=== PATIENT | female | born 1980 | race Caucasian/White ===

== ENCOUNTER 2017-12-07 20:59 | Inpatient (IN) ==
[2017-12-07 21:28] LABS: Bilirubin,Urine Negative (Negative); Blood,Urine Trace (Negative); Clarity,Urine Cloudy (Clear); Color,Urine Yellow (Yellow); Glucose,Urine (UA) 100 mg/dL (Normal); Ketones,Urine Trace mg/dL (Negative); Leukocyte Esterase,Urine Moderate (Negative); Nitrite,Urine Negative (Negative); Protein,Urine Trace mg/dL (Neg-Trace); Specific Gravity,Urine > 1.030 (1.010-1.025); Urobilinogen,Urine Normal (Normal)
[2017-12-07 21:31] LABS: Bacteria,Urine Few per hpf (None-Few); Hyaline Casts,Urine Few per lpf (None-Few); Squamous Epithelial Cell,Urine Many per lpf (None-Few); WBC,Urine 15-30 per hpf (0-3)
[2017-12-07 21:32] LABS: Basophils # 0.1 K/mcL (0.0-0.2); Basophils % 0.4 %; Eosinophils # 0.1 K/mcL (0.0-0.6); Eosinophils % 0.9 %; Hemoglobin 13.5 g/dL (11.5-15.4); Immature Granulocytes % 0.4 % (0-4); Lymphocytes # 3.1 K/mcL (0.6-4.6); Lymphocytes % 25.4 %; Mean Corpuscular HGB Conc 32.9 g/dL (31.6-35.5); Mean Platelet Volume 10.3 fL (9.4-12.4); Monocytes # 0.8 K/mcL (0.0-1.3); Monocytes % 6.4 %; Neutrophils # 8.2 K/mcL (1.6-8.9); Platelet Count 432 K/mcL (140-400); Red Blood Count 4.36 M/mcL (3.82-4.97); Red Cell Distribution Width 13.5 % (11.5-14.5); Segmented Neutrophils % 66.5 %
[2017-12-07 21:34] LABS: Amphetamine Screen,Urine Negative ng/mL (Cutoff=1000); Barbiturate Screen,Urine Negative ng/mL (Cutoff=200); Benzodiazepines Screen,Urine Negative ng/mL (Cutoff=200); Cannabinoid Screen,Urine Negative ng/mL (Cutoff = 50); Cocaine Screen,Urine Positive ng/mL (Cutoff= 300); Opiate Screen,Urine Negative ng/mL (Cutoff=300); Phencyclidine Screen,Urine Negative ng/mL (Cutoff=25)
[2017-12-07 21:40] LABS: Acetaminophen < 1.0 mcg/mL (10-30); Ethanol < 10 mg/dL (0-10); Salicylate < 5.0 mg/dL (15.0-30.0)
[2017-12-07 21:46] LABS: BUN/Creatinine Ratio 17 (6-26); Blood Urea Nitrogen 13 mg/dL (6-20); Calcium 9.5 mg/dL (8.6-10.3); Carbon Dioxide 25 mEq/L (23-29); Chloride 105 mEq/L (98-107); Glucose 104 mg/dL (70-105); Osmolality,Calculated 286 (280-300); Potassium 3.9 mEq/L (3.5-5.1); Sodium 138 mEq/L (136-145); eGFR For African Americans > 60 (> 60); eGFR For Non-African Americans > 60 (> 60)
[2017-12-07 21:52] LABS: RBC,Urine 0-3 per hpf (0-3); Trichomonas,Urine Present (None Seen)
[2017-12-07] MEDS ORDERED: Azithromycin 250 MG TABLET PO ONE (23:24)
[2017-12-07] MEDS ORDERED: cefTRIAXone 250 MG VIAL IM ONE (23:24)
[2017-12-07] MEDS ORDERED: metroNIDAZOLE 500 MG TABLET PO ONE (23:24)
--- NOTE | 2017-12-07 23:29 | Emergency Department Note ---
Disposition Clinical Impression: STD (female), Suicidal ideation Disposition: Admitted As Inpatient Condition: Good General Adult HPI - General Chief complaint: ED Psychiatric Symptoms Stated complaint: SI Time Seen by Provider: 12/07/17 21:15 Source: EMS Limitations: no limitations Nursing Notes Reviewed: Yes Vital Signs Reviewed: Yes - History of Present Illness HPI Narrative: This is a 37-year-old female presents with a history of bipolar depression as well as substance abuse disorder who has been self-medicating with cocaine as well as alcohol. She complains this evening of feeling suicidal but does not have a clear plan. She denies homicidality or other medical complaints at this time. She is sexually active. She does not a history of herpes. She has no vaginal discharge at this time. General: No acute distress HEENT: Pupils equal and reactive to light, extraoccular muscle movement is normal, TMS are clear bilaterally. Heart: RRR, No murmor rub or gallop Lungs: lungs clear, no wheezing, rales or ronchi. ABD: SNT, no focal areas or tenderness, no guarding or rebound tenderness. Extremities: No cyanosis, clubbing or edema Neuro: CN 2-12 in tact, no focal deficit. strength 5/5. Medical decision making Findings consistent with Trichomonas. I would treat for additional STDs. Flagyl as well as ceftriaxone and azithromycin were given. She will only need this 1 dose. She is to follow-up with the health department upon discharge after any psychiatric services for syphilis as well as HIV testing. Pain Scale: 0 - Related Data Previous Rx's Medication Instructions Recorded Divalproex (24 HR) [Depakote ER 1,500 mg PO HS #30 tab.er.24h 12/15/17 (24 HR)] Mirtazapine [Remeron] 7.5 mg PO HS #10 tablet 12/15/17 Quetiapine Fumarate [Seroquel] 50 mg PO HS #10 tablet 12/15/17 Quetiapine Fumarate [Seroquel] 100 mg PO HS #10 tablet 12/15/17 Allergies Allergy/AdvReac Type Severity Reaction Status Date / Time codeine Allergy Rash Verified 11/12/15 20:48 All systems ED: reviewed and negative except as stated. 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 - Social History Smoking Status: Former smoker Smokeless Tobacco Status: No Alcohol use: Reports: none, occasionally Drug use: Reports: none, other Physical Exam - General Limitations: no limitations General appearance: alert, in no apparent distress Course Vital Signs Temperature 98.1 F 12/07/17 21:01 Pulse Rate 81 12/07/17 21:01 Respiratory Rate 20 12/07/17 21:01 Blood Pressure 161/85 12/07/17 21:01 O2 Sat by Pulse Oximetry 97 12/07/17 21:01 Temperature 97.6 F 12/15/17 09:00 Pulse Rate 77 12/15/17 09:00 Respiratory Rate 16 12/15/17 09:00 Blood Pressure 143/84 12/15/17 09:00 O2 Sat by Pulse Oximetry 98 12/08/17 08:18 Oxygen Delivery Oxygen Delivery Room Air Medical Decision Making - Lab Data Result diagrams: 12/13/17 11:19 12/07/17 21:10 Lab Results 12/07/17 12/07/17 12/07/17 Range/Units 21:10 21:10 21:14 WBC 12.4 H (4.3-11.1) K/mcL RBC 4.36 (3.82-4.97) M/mcL Hgb 13.5 (11.5-15.4) g/dL Hct 41.0 (35.3-44.9) % MCV 94.0 (83.0-100.0) fL MCH 31.0 (28.0-33.3) pg MCHC 32.9 (31.6-35.5) g/dL RDW 13.5 (11.5-14.5) % Plt Count 432 H (140-400) K/mcL MPV 10.3 (9.4-12.4) fL Immature Gran % 0.4 (0-4) % Seg Neutrophils % 66.5 % Lymphocytes % 25.4 % Monocytes % 6.4 % Eosinophils % 0.9 % Basophils % 0.4 % Neutrophils # 8.2 (1.6-8.9) K/mcL Lymphocytes # 3.1 (0.6-4.6) K/mcL Monocytes # 0.8 (0.0-1.3) K/mcL Eosinophils # 0.1 (0.0-0.6) K/mcL Basophils # 0.1 (0.0-0.2) K/mcL Sodium 138 (136-145) mEq/L Potassium 3.9 (3.5-5.1) mEq/L Chloride 105 (98-107) mEq/L Carbon Dioxide 25 (23-29) mEq/L BUN 13 (6-20) mg/dL Creatinine 0.76 (0.60-1.20) mg/dL Est GFR ( Amer) > 60 (> 60) Est GFR (Non-Af Amer) > 60 (> 60) BUN/Creatinine Ratio 17 (6-26) Glucose 104 (70-105) mg/dL Calculated Osmolality 286 (280-300) Calcium 9.5 (8.6-10.3) mg/dL Urine Color (Yellow) Urine Clarity (Clear) Urine pH (5.0-8.0) pH Units Ur Specific [place] (1.010-1.025) Urine Protein (Neg-Trace) mg/dL Urine Glucose (UA) (Normal) mg/dL Urine Ketones (Negative) mg/dL Urine Blood (Negative) Urine Nitrite (Negative) Urine Bilirubin (Negative) Urine Urobilinogen (Normal) mg/dL Ur Leukocyte Esterase (Negative) Urine Microscopic RBC (0-3) per hpf Urine Microscopic WBC (0-3) per hpf Ur Squamous Epith Cells (None-Few) per lpf Urine Bacteria (None-Few) per hpf Hyaline Casts (None-Few) per lpf Urine Trichomonas (None Seen) Urine Test (Negative) Salicylates < 5.0 L (15.0-30.0) mg/dL Urine Opiates Screen Negative (Vnnewi=105) ng/mL Acetaminophen < 1.0 L (10-30) mcg/mL Ur Barbiturates Screen Negative (Tcxfce=606) ng/mL Ur Phencyclidine Scrn Negative (Cutoff=25) ng/mL Ur Amphetamines Screen Negative (Juvprv=6411) ng/mL U Benzodiazepines Scrn Negative (Sjbiuw=337) ng/mL Urine Cocaine Screen Positive H (Cutoff= 300) ng/mL U Marijuana (THC) Screen Negative (Cutoff = 50) ng/mL Ethyl Alcohol < 10 (0-10) mg/dL 12/07/17 12/07/17 Range/Units 21:15 21:15 WBC (4.3-11.1) K/mcL RBC (3.82-4.97) M/mcL Hgb (11.5-15.4) g/dL Hct (35.3-44.9) % MCV (83.0-100.0) fL MCH (28.0-33.3) pg MCHC (31.6-35.5) g/dL RDW (11.5-14.5) % Plt Count (140-400) K/mcL MPV (9.4-12.4) fL Immature Gran % (0-4) % Seg Neutrophils % % Lymphocytes % % Monocytes % % Eosinophils % % Basophils % % Neutrophils # (1.6-8.9) K/mcL Lymphocytes # (0.6-4.6) K/mcL Monocytes # (0.0-1.3) K/mcL Eosinophils # (0.0-0.6) K/mcL Basophils # (0.0-0.2) K/mcL Sodium (136-145) mEq/L Potassium (3.5-5.1) mEq/L Chloride (98-107) mEq/L Carbon Dioxide (23-29) mEq/L BUN (6-20) mg/dL Creatinine (0.60-1.20) mg/dL Est GFR ( Amer) (> 60) Est GFR (Non-Af Amer) (> 60) BUN/Creatinine Ratio (6-26) Glucose (70-105) mg/dL Calculated Osmolality (280-300) Calcium (8.6-10.3) mg/dL Urine Color Yellow (Yellow) Urine Clarity Cloudy A (Clear) Urine pH 6.0 (5.0-8.0) pH Units Ur Specific [place] > 1.030 H (1.010-1.025) Urine Protein Trace (Neg-Trace) mg/dL Urine Glucose (UA) 100 H (Normal) mg/dL Urine Ketones Trace H (Negative) mg/dL Urine Blood Trace H (Negative) Urine Nitrite Negative (Negative) Urine Bilirubin Negative (Negative) Urine Urobilinogen Normal (Normal) mg/dL Ur Leukocyte Esterase Moderate H (Negative) Urine Microscopic RBC 0-3 (0-3) per hpf Urine Microscopic WBC 15-30 H (0-3) per hpf Ur Squamous Epith Cells Many H (None-Few) per lpf Urine Bacteria Few (None-Few) per hpf Hyaline Casts Few (None-Few) per lpf Urine Trichomonas Present A (None Seen) Urine Test Negative (Negative) Salicylates (15.0-30.0) mg/dL Urine Opiates Screen (Utftna=850) ng/mL Acetaminophen (10-30) mcg/mL Ur Barbiturates Screen (Gobwne=273) ng/mL Ur Phencyclidine Scrn (Cutoff=25) ng/mL Ur Amphetamines Screen (Nbwwlm=2783) ng/mL U Benzodiazepines Scrn (Gziyby=146) ng/mL Urine Cocaine Screen (Cutoff= 300) ng/mL U Marijuana (THC) Screen (Cutoff = 50) ng/mL Ethyl Alcohol (0-10) mg/dL
--- NOTE | 2017-12-08 00:16 | Emergency Department Note ---
Disposition Clinical Impression: STD (female), Suicidal ideation Disposition: Still a Patient Condition: Good Referrals: NONE,PCP [Primary Care Provider] - Forms: ED Satisfaction Letter Time of Disposition: 06:14 General Adult HPI - General Chief complaint: ED Psychiatric Symptoms Stated complaint: SI Time Seen by Provider: 12/07/17 21:15 Source: EMS Limitations: no limitations - History of Present Illness Pain Scale: 0 - Related Data Previous Rx's Medication Instructions Recorded Amoxicillin/Clavulanate [Augmentin] 875 mg PO BIDWM #20 tablet 11/06/15 Benzonatate [Tessalon] 200 mg PO TID PRN #30 capsule 11/06/15 Ibuprofen [Motrin] 800 mg PO Q6-8H PRN #30 tablet 11/06/15 Ondansetron [Zofran] 8 mg PO TID PRN #9 tablet 11/06/15 HYDROcodone/Acet 5/325 mg [[place] 1 tab PO Q6H PRN #4 tab 12/18/15 5-325 mg] methylPREDNISolone [Medrol] 4 mg PO DAILY 6 Days tablet 12/18/15 Cimetidine 300 mg PO BID PRN #10 tablet 07/09/16 DiphenhydraMINE [Benadryl] 50 mg PO Q6HR PRN #20 capsule 07/09/16 predniSONE [PredniSONE] 40 mg PO DAILY #3 tablet 07/09/16 Albuterol Sulfate [Albuterol 2 puff IH Q6HR PRN #1 hfa.aer.ad 11/21/16 Inhaler] predniSONE [PredniSONE] 40 mg PO DAILY 5 Days tablet 11/21/16 Fluticasone Propionate Nasal 120 spray NS DAILY #1 bottle 05/25/17 [Flonase] cephALEXin [Keflex] 500 mg PO BID #14 capsule 05/25/17 Allergies Allergy/AdvReac Type Severity Reaction Status Date / Time codeine Allergy Rash Verified 11/12/15 20:48 Past Medical History - Past Medical History Medical history: Reports: no medical history Psychiatric history: Reports: anxiety, bipolar, 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 Bedolla. Patient was evaluated by the psychiatric team and they recommended admission at this time. Patient is resting comfortably in the bed requiring no medical intervention at this point. We will continue monitoring in the emergency room to admission process is completed. Patient is otherwise stable. No acute findings in the physical exam her previous laboratory workup. See detailed documentation of the physical exam and previous history in the previous providers note. - Reevaluation(s) Reevaluation #1: Patient will be signed out to the daytime physician Dr. Bety Fatima. Detailed review of the presentation symptoms medical intervention will be discussed. Patient is waiting on placement currently this time. No need for medical intervention overnight except for Tylenol. Disposition will be completed by the daytime team. Time: 06:13 Vital Signs Temperature 98.1 F 12/07/17 21:01 Pulse Rate 81 12/07/17 21:01 Respiratory Rate 20 12/07/17 21:01 Blood Pressure 161/85 12/07/17 21:01 O2 Sat by Pulse Oximetry 97 12/07/17 21:01 Temperature 98.0 F 12/08/17 03:07 Pulse Rate 94 12/08/17 03:07 Respiratory Rate 16 12/08/17 03:07 Blood Pressure 131/82 12/08/17 03:07 O2 Sat by Pulse Oximetry 98 12/08/17 03:07 Oxygen Delivery Oxygen Delivery Room Air Medical Decision Making - MDM Narrative Medical decision making narrative: Suicidal ideation, polysubstance abuse - Medical Records Medical records reviewed: Yes I reviewed the patient's medical records. - Lab Data Result diagrams: 12/07/17 21:10 12/07/17 21:10 Lab Results 12/07/17 12/07/17 12/07/17 Range/Units 21:10 21:10 21:14 WBC 12.4 H (4.3-11.1) K/mcL RBC 4.36 (3.82-4.97) M/mcL Hgb 13.5 (11.5-15.4) g/dL Hct 41.0 (35.3-44.9) % MCV 94.0 (83.0-100.0) fL MCH 31.0 (28.0-33.3) pg MCHC 32.9 (31.6-35.5) g/dL RDW 13.5 (11.5-14.5) % Plt Count 432 H (140-400) K/mcL MPV 10.3 (9.4-12.4) fL Immature Gran % 0.4 (0-4) % Seg Neutrophils % 66.5 % Lymphocytes % 25.4 % Monocytes % 6.4 % Eosinophils % 0.9 % Basophils % 0.4 % Neutrophils # 8.2 (1.6-8.9) K/mcL Lymphocytes # 3.1 (0.6-4.6) K/mcL Monocytes # 0.8 (0.0-1.3) K/mcL Eosinophils # 0.1 (0.0-0.6) K/mcL Basophils # 0.1 (0.0-0.2) K/mcL Sodium 138 (136-145) mEq/L Potassium 3.9 (3.5-5.1) mEq/L Chloride 105 (98-107) mEq/L Carbon Dioxide 25 (23-29) mEq/L BUN 13 (6-20) mg/dL Creatinine 0.76 (0.60-1.20) mg/dL Est GFR ( Amer) > 60 (> 60) Est GFR (Non-Af Amer) > 60 (> 60) BUN/Creatinine Ratio 17 (6-26) Glucose 104 (70-105) mg/dL Calculated Osmolality 286 (280-300) Calcium 9.5 (8.6-10.3) mg/dL Urine Color (Yellow) Urine Clarity (Clear) Urine pH (5.0-8.0) pH Units Ur Specific [place] (1.010-1.025) Urine Protein (Neg-Trace) mg/dL Urine Glucose (UA) (Normal) mg/dL Urine Ketones (Negative) mg/dL Urine Blood (Negative) Urine Nitrite (Negative) Urine Bilirubin (Negative) Urine Urobilinogen (Normal) mg/dL Ur Leukocyte Esterase (Negative) Urine Microscopic RBC (0-3) per hpf Urine Microscopic WBC (0-3) per hpf Ur Squamous Epith Cells (None-Few) per lpf Urine Bacteria (None-Few) per hpf Hyaline Casts (None-Few) per lpf Urine Trichomonas (None Seen) Urine Test (Negative) Salicylates < 5.0 L (15.0-30.0) mg/dL Urine Opiates Screen Negative (Cahcyj=950) ng/mL Acetaminophen < 1.0 L (10-30) mcg/mL Ur Barbiturates Screen Negative (Tgapen=939) ng/mL Ur Phencyclidine Scrn Negative (Cutoff=25) ng/mL Ur Amphetamines Screen Negative (Jaunkn=8450) ng/mL U Benzodiazepines Scrn Negative (Khosve=428) ng/mL Urine Cocaine Screen Positive H (Cutoff= 300) ng/mL U Marijuana (THC) Screen Negative (Cutoff = 50) ng/mL Ethyl Alcohol < 10 (0-10) mg/dL 12/07/17 12/07/17 Range/Units 21:15 21:15 WBC (4.3-11.1) K/mcL RBC (3.82-4.97) M/mcL Hgb (11.5-15.4) g/dL Hct (35.3-44.9) % MCV (83.0-100.0) fL MCH (28.0-33.3) pg MCHC (31.6-35.5) g/dL RDW (11.5-14.5) % Plt Count (140-400) K/mcL MPV (9.4-12.4) fL Immature Gran % (0-4) % Seg Neutrophils % % Lymphocytes % % Monocytes % % Eosinophils % % Basophils % % Neutrophils # (1.6-8.9) K/mcL Lymphocytes # (0.6-4.6) K/mcL Monocytes # (0.0-1.3) K/mcL Eosinophils # (0.0-0.6) K/mcL Basophils # (0.0-0.2) K/mcL Sodium (136-145) mEq/L Potassium (3.5-5.1) mEq/L Chloride (98-107) mEq/L Carbon Dioxide (23-29) mEq/L BUN (6-20) mg/dL Creatinine (0.60-1.20) mg/dL Est GFR ( Amer) (> 60) Est GFR (Non-Af Amer) (> 60) BUN/Creatinine Ratio (6-26) Glucose (70-105) mg/dL Calculated Osmolality (280-300) Calcium (8.6-10.3) mg/dL Urine Color Yellow (Yellow) Urine Clarity Cloudy A (Clear) Urine pH 6.0 (5.0-8.0) pH Units Ur Specific [place] > 1.030 H (1.010-1.025) Urine Protein Trace (Neg-Trace) mg/dL Urine Glucose (UA) 100 H (Normal) mg/dL Urine Ketones Trace H (Negative) mg/dL Urine Blood Trace H (Negative) Urine Nitrite Negative (Negative) Urine Bilirubin Negative (Negative) Urine Urobilinogen Normal (Normal) mg/dL Ur Leukocyte Esterase Moderate H (Negative) Urine Microscopic RBC 0-3 (0-3) per hpf Urine Microscopic WBC 15-30 H (0-3) per hpf Ur Squamous Epith Cells Many H (None-Few) per lpf Urine Bacteria Few (None-Few) per hpf Hyaline Casts Few (None-Few) per lpf Urine Trichomonas Present A (None Seen) Urine Test Negative (Negative) Salicylates (15.0-30.0) mg/dL Urine Opiates Screen (Pvbzxp=085) ng/mL Acetaminophen (10-30) mcg/mL Ur Barbiturates Screen (Zguumf=275) ng/mL Ur Phencyclidine Scrn (Cutoff=25) ng/mL Ur Amphetamines Screen (Zwlvem=8301) ng/mL U Benzodiazepines Scrn (Razvbv=507) ng/mL Urine Cocaine Screen (Cutoff= 300) ng/mL U Marijuana (THC) Screen (Cutoff = 50) ng/mL Ethyl Alcohol (0-10) mg/dL
[2017-12-08] MEDS ORDERED: Lidocaine -MPF 1% 2 ML VIAL ONE (00:31)
--- NOTE | 2017-12-08 12:41 | Emergency Department Note ---
Disposition Clinical Impression: STD (female), Suicidal ideation Disposition: Admitted As Inpatient Condition: Good Referrals: NONE,PCP [Primary Care Provider] - Forms: ED Satisfaction Letter Time of Disposition: 12:41 General Adult HPI - General Chief complaint: ED Psychiatric Symptoms Stated complaint: SI Time Seen by Provider: 12/07/17 21:15 Source: EMS Limitations: no limitations - History of Present Illness Pain Scale: 0 - Related Data Previous Rx's Medication Instructions Recorded Amoxicillin/Clavulanate [Augmentin] 875 mg PO BIDWM #20 tablet 11/06/15 Benzonatate [Tessalon] 200 mg PO TID PRN #30 capsule 11/06/15 Ibuprofen [Motrin] 800 mg PO Q6-8H PRN #30 tablet 11/06/15 Ondansetron [Zofran] 8 mg PO TID PRN #9 tablet 11/06/15 HYDROcodone/Acet 5/325 mg [[place] 1 tab PO Q6H PRN #4 tab 12/18/15 5-325 mg] methylPREDNISolone [Medrol] 4 mg PO DAILY 6 Days tablet 12/18/15 Cimetidine 300 mg PO BID PRN #10 tablet 07/09/16 DiphenhydraMINE [Benadryl] 50 mg PO Q6HR PRN #20 capsule 07/09/16 predniSONE [PredniSONE] 40 mg PO DAILY #3 tablet 07/09/16 Albuterol Sulfate [Albuterol 2 puff IH Q6HR PRN #1 hfa.aer.ad 11/21/16 Inhaler] predniSONE [PredniSONE] 40 mg PO DAILY 5 Days tablet 11/21/16 Fluticasone Propionate Nasal 120 spray NS DAILY #1 bottle 05/25/17 [Flonase] cephALEXin [Keflex] 500 mg PO BID #14 capsule 05/25/17 Allergies Allergy/AdvReac Type Severity Reaction Status Date / Time codeine Allergy Rash Verified 11/12/15 20:48 Past Medical History - Past Medical History Medical history: Reports: no medical history Psychiatric history: Reports: anxiety, 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 Admitted to [facility] Time: 12:41 Vital Signs Temperature 98.1 F 12/07/17 21:01 Pulse Rate 81 12/07/17 21:01 Respiratory Rate 20 12/07/17 21:01 Blood Pressure 161/85 12/07/17 21:01 O2 Sat by Pulse Oximetry 97 12/07/17 21:01 Temperature 98.0 F 12/08/17 03:07 Pulse Rate 98 12/08/17 08:18 Respiratory Rate 16 12/08/17 08:18 Blood Pressure 133/86 12/08/17 08:18 O2 Sat by Pulse Oximetry 98 12/08/17 08:18 Oxygen Delivery Oxygen Delivery Room Air Medical Decision Making - Lab Data Result diagrams: 12/07/17 21:10 12/07/17 21:10 Lab Results 12/07/17 12/07/17 12/07/17 Range/Units 21:10 21:10 21:14 WBC 12.4 H (4.3-11.1) K/mcL RBC 4.36 (3.82-4.97) M/mcL Hgb 13.5 (11.5-15.4) g/dL Hct 41.0 (35.3-44.9) % MCV 94.0 (83.0-100.0) fL MCH 31.0 (28.0-33.3) pg MCHC 32.9 (31.6-35.5) g/dL RDW 13.5 (11.5-14.5) % Plt Count 432 H (140-400) K/mcL MPV 10.3 (9.4-12.4) fL Immature Gran % 0.4 (0-4) % Seg Neutrophils % 66.5 % Lymphocytes % 25.4 % Monocytes % 6.4 % Eosinophils % 0.9 % Basophils % 0.4 % Neutrophils # 8.2 (1.6-8.9) K/mcL Lymphocytes # 3.1 (0.6-4.6) K/mcL Monocytes # 0.8 (0.0-1.3) K/mcL Eosinophils # 0.1 (0.0-0.6) K/mcL Basophils # 0.1 (0.0-0.2) K/mcL Sodium 138 (136-145) mEq/L Potassium 3.9 (3.5-5.1) mEq/L Chloride 105 (98-107) mEq/L Carbon Dioxide 25 (23-29) mEq/L BUN 13 (6-20) mg/dL Creatinine 0.76 (0.60-1.20) mg/dL Est GFR ( Amer) > 60 (> 60) Est GFR (Non-Af Amer) > 60 (> 60) BUN/Creatinine Ratio 17 (6-26) Glucose 104 (70-105) mg/dL Calculated Osmolality 286 (280-300) Calcium 9.5 (8.6-10.3) mg/dL Urine Color (Yellow) Urine Clarity (Clear) Urine pH (5.0-8.0) pH Units Ur Specific [place] (1.010-1.025) Urine Protein (Neg-Trace) mg/dL Urine Glucose (UA) (Normal) mg/dL Urine Ketones (Negative) mg/dL Urine Blood (Negative) Urine Nitrite (Negative) Urine Bilirubin (Negative) Urine Urobilinogen (Normal) mg/dL Ur Leukocyte Esterase (Negative) Urine Microscopic RBC (0-3) per hpf Urine Microscopic WBC (0-3) per hpf Ur Squamous Epith Cells (None-Few) per lpf Urine Bacteria (None-Few) per hpf Hyaline Casts (None-Few) per lpf Urine Trichomonas (None Seen) Urine Test (Negative) Salicylates < 5.0 L (15.0-30.0) mg/dL Urine Opiates Screen Negative (Gajhdp=661) ng/mL Acetaminophen < 1.0 L (10-30) mcg/mL Ur Barbiturates Screen Negative (Dizyha=649) ng/mL Ur Phencyclidine Scrn Negative (Cutoff=25) ng/mL Ur Amphetamines Screen Negative (Rcvehu=2001) ng/mL U Benzodiazepines Scrn Negative (Alscji=308) ng/mL Urine Cocaine Screen Positive H (Cutoff= 300) ng/mL U Marijuana (THC) Screen Negative (Cutoff = 50) ng/mL Ethyl Alcohol < 10 (0-10) mg/dL 12/07/17 12/07/17 Range/Units 21:15 21:15 WBC (4.3-11.1) K/mcL RBC (3.82-4.97) M/mcL Hgb (11.5-15.4) g/dL Hct (35.3-44.9) % MCV (83.0-100.0) fL MCH (28.0-33.3) pg MCHC (31.6-35.5) g/dL RDW (11.5-14.5) % Plt Count (140-400) K/mcL MPV (9.4-12.4) fL Immature Gran % (0-4) % Seg Neutrophils % % Lymphocytes % % Monocytes % % Eosinophils % % Basophils % % Neutrophils # (1.6-8.9) K/mcL Lymphocytes # (0.6-4.6) K/mcL Monocytes # (0.0-1.3) K/mcL Eosinophils # (0.0-0.6) K/mcL Basophils # (0.0-0.2) K/mcL Sodium (136-145) mEq/L Potassium (3.5-5.1) mEq/L Chloride (98-107) mEq/L Carbon Dioxide (23-29) mEq/L BUN (6-20) mg/dL Creatinine (0.60-1.20) mg/dL Est GFR ( Amer) (> 60) Est GFR (Non-Af Amer) (> 60) BUN/Creatinine Ratio (6-26) Glucose (70-105) mg/dL Calculated Osmolality (280-300) Calcium (8.6-10.3) mg/dL Urine Color Yellow (Yellow) Urine Clarity Cloudy A (Clear) Urine pH 6.0 (5.0-8.0) pH Units Ur Specific [place] > 1.030 H (1.010-1.025) Urine Protein Trace (Neg-Trace) mg/dL Urine Glucose (UA) 100 H (Normal) mg/dL Urine Ketones Trace H (Negative) mg/dL Urine Blood Trace H (Negative) Urine Nitrite Negative (Negative) Urine Bilirubin Negative (Negative) Urine Urobilinogen Normal (Normal) mg/dL Ur Leukocyte Esterase Moderate H (Negative) Urine Microscopic RBC 0-3 (0-3) per hpf Urine Microscopic WBC 15-30 H (0-3) per hpf Ur Squamous Epith Cells Many H (None-Few) per lpf Urine Bacteria Few (None-Few) per hpf Hyaline Casts Few (None-Few) per lpf Urine Trichomonas Present A (None Seen) Urine Test Negative (Negative) Salicylates (15.0-30.0) mg/dL Urine Opiates Screen (Ryagbc=911) ng/mL Acetaminophen (10-30) mcg/mL Ur Barbiturates Screen (Gqgtio=545) ng/mL Ur Phencyclidine Scrn (Cutoff=25) ng/mL Ur Amphetamines Screen (Zxmieq=5899) ng/mL U Benzodiazepines Scrn (Doqyls=658) ng/mL Urine Cocaine Screen (Cutoff= 300) ng/mL U Marijuana (THC) Screen (Cutoff = 50) ng/mL Ethyl Alcohol (0-10) mg/dL
[2017-12-08] MEDS ORDERED: Haloperidol Lactate 5 MG/ML VIAL IM PRN (15:04)
[2017-12-08] MEDS ORDERED: traZODone 50 MG TABLET PO PRN (15:04)
[2017-12-08] MEDS ORDERED: MOM Conc 10 ML UD.LIQ PO PRN (15:04)
[2017-12-08] MEDS ORDERED: hydrOXYzine pamoate 25 MG CAPSULE PO PRN (15:04)
[2017-12-08] MEDS ORDERED: *HR* LORazepam 2 MG/ML VIAL IM PRN (15:04)
[2017-12-08] MEDS ORDERED: Acetaminophen 325 MG TABLET PO PRN (15:04)
[2017-12-08] MEDS ORDERED: *HR* LORazepam 1 MG TABLET PO PRN (15:04)
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
[2017-12-09] MEDS: Divalproex (24 HR) 500 MG TABLET PO SCH (21:28)
--- NOTE | 2017-12-10 16:13 | Psychiatry Progress Note ---
Date of Encounter: 12/10/17 Time of Encounter: 16:00 Subjective Interval history: The patient was seen on the celis. She has features of intermittent explosive disorder which we have not seen on the use of Depakote. She has features of bipolar disorder and tends to be gregarious talkative and interactive on the unit. She has not been threatening but has been persistent. She remains on the inpatient unit because of potential for harm to others. Specifically we need to collect additional history regarding the patient's fiance and mother Review of Systems Psychiatric: Reports: depression, memory loss, mood swings Results - Vital Signs Vital Signs: Temp Pulse Resp BP Pulse Ox 98 F 98 16 129/91 98 12/10/17 09:12 12/10/17 09:12 12/10/17 09:12 12/10/17 09:12 12/08/17 08:18 Assessment and Plan (1) Bipolar disorder, current episode mixed, severe, without psychotic features Current visit: Yes Status: Acute Plan: Continue hospitalization, Close observation, Secure weapons Risks, benefits, side effects, alternatives discussed w/pt: Yes Patient agreeable to treatment: Yes (2) Intermittent explosive disorder Current visit: Yes Status: Acute Plan: Monitor sleep, Secure weapons, Family/Supportive other meeting Risks, benefits, side effects, alternatives discussed w/pt: Yes Patient agreeable to treatment: Yes Consult Discharge Plan - Plan Referrals: [facility] [Outside] - 12/16/17 10:30 am (The above appointment is with Chloe Xiao, counselor at [facility]. Your first appointment will be very thorough and the total appointment time will take between two and three hours. You will be completing paperwork, meeting with a counselor and a nurse, and developing a treatment plan. You will receive follow- up appointments for on-going services , which could include community support, mental health and substance abuse counseling, groups/partial hospitalization programming, medication assisted treatment, and psychiatric medication management. Please bring the following with you to your first visit to the clinic: 1) proof of household income (two consecutive pay stubs, social security award letter, bank statement, statement letter from [facility], child support statement, IRS 1040 or W2 form, or a statement from the person who financially supports you stating they help provide for your basic needs), 2) proof of residency (drivers license, a piece of mail showing your address, a statement from person you live with verifying you live at their address), 3) your social security card, 4) photo ID, and 5) your insurance card (if you have commercial insurance you must call to obtain a prior authorization number before you arrive to your first appointment). If you do not bring these items, you will not be seen. ) Annamarie Vargas [Advanced Practice Nurse] - (The above appointment is with Annamarie Vargas CNP, at [facility]. This appointment is to establish you with a primary care provider. Your needs for medication and/or Vivitrol will be assessed and treated as indicated as well. Please arrive 15 minutes early to complete paperwork. Please bring your insurance card, photo ID and list of current medications to your first appointment. The above appointment(s) reflects first availability. You may contact the office regularly to check for cancellations that may allow you to be seen sooner.) Psychiatry Exam - Constitutional Vitals: Temp Pulse Resp BP Pulse Ox 98 F 98 16 129/91 98 12/10/17 09:12 12/10/17 09:12 12/10/17 09:12 12/10/17 09:12 12/08/17 08:18 General appearance: age & developmentally appropriate, well-groomed - Musculoskeletal Gait: brisk Station: relaxed Strength & Tone: normal for patient - Psychiatric Patient Orientation: Yes Person, Yes Time, Yes Place Level of alertness: Alert Behavior: restless, impulsive, talkative Psychomotor activity: Increased Eye Contact: Maintains Eye Contact Mood Description: Elevated, Expansive Affect description: full range Speech Volume: Loud Speech pattern: normal rate Language & Vocabulary: consistent with education Thought Process: Linear, Goal Oriented Thought Content: Yes Homicidal ideation Perceptual Disturbances: No Auditory hallucinations, No Visual hallucinations Attention Span Ability: Capable of Focused Attention Memory Description: Grossly Intact Patient Reliability: Questionable Historian Fund of knowledge: Yes average Intelligence Estimate: Average Judgment: Limited Insight: Minimal
[2017-12-10] MEDS: Divalproex (24 HR) 500 MG TABLET PO SCH (21:03)
--- NOTE | 2017-12-11 15:51 | Psychiatry Progress Note ---
Date of Encounter: 12/11/17 Time of Encounter: 13:00 Subjective Interval history: Patient seen and discussed on rounds by a multidisciplinary treatment team. There were no reported behavioral issues or incident overnight. She was calm, cooperative and well related through out her evaluation. She reported significant improvement in her racing thoughts. mood swings and irritability. Patient however continue to endorse some depressive symptoms and is not to be isolating her self and spending most of her day in her room. She is complaint with her medications and denied any noted side effects. She reported significant improvement in her sleep with her regimen and denied any noted side effects. Patient logical and goal directed. Though she is responding to regimen , she continuous to exhibit limited impulse control and judgment. Patient remains a rsik to self and other at present time and will benefit from ongoing stabilization. Review of Systems Psychiatric: Reports: depression, irritability, mood swings Results - Vital Signs Vital Signs: Temp Pulse Resp BP Pulse Ox 97.6 F 88 16 135/94 98 12/11/17 09:00 12/11/17 09:00 12/11/17 09:00 12/11/17 09:00 12/08/17 08:18 Assessment and Plan (1) Bipolar disorder, current episode mixed, severe, without psychotic features Current visit: Yes Status: Acute Risks, benefits, side effects, alternatives discussed w/pt: Yes Patient agreeable to treatment: Yes Consult Discharge Plan - Plan Referrals: [facility] [Outside] - 12/16/17 10:30 am (The above appointment is with Chloe Xiao, counselor at [facility]. Your first appointment will be very thorough and the total appointment time will take between two and three hours. You will be completing paperwork, meeting with a counselor and a nurse, and developing a treatment plan. You will receive follow- up appointments for on-going services , which could include community support, mental health and substance abuse counseling, groups/partial hospitalization programming, medication assisted treatment, and psychiatric medication management. Please bring the following with you to your first visit to the clinic: 1) proof of household income (two consecutive pay stubs, social security award letter, bank statement, statement letter from [facility], child support statement, IRS 1040 or W2 form, or a statement from the person who financially supports you stating they help provide for your basic needs), 2) proof of residency (drivers license, a piece of mail showing your address, a statement from person you live with verifying you live at their address), 3) your social security card, 4) photo ID, and 5) your insurance card (if you have commercial insurance you must call to obtain a prior authorization number before you arrive to your first appointment). If you do not bring these items, you will not be seen. ) Annamarie Vargas [Advanced Practice Nurse] - (The above appointment is with Annamarie Vargas CNP, at [facility]. This appointment is to establish you with a primary care provider. Your needs for medication and/or Vivitrol will be assessed and treated as indicated as well. Please arrive 15 minutes early to complete paperwork. Please bring your insurance card, photo ID and list of current medications to your first appointment. The above appointment(s) reflects first availability. You may contact the office regularly to check for cancellations that may allow you to be seen sooner.) Psychiatry Exam - Constitutional Vitals: Temp Pulse Resp BP Pulse Ox 97.6 F 88 16 135/94 98 12/11/17 09:00 12/11/17 09:00 12/11/17 09:00 12/11/17 09:00 12/08/17 08:18 General appearance: age & developmentally appropriate - Musculoskeletal Gait: normal - Psychiatric Patient Orientation: Yes Person, Yes Time, Yes Place, Yes Circumstance Level of alertness: Alert Behavior: calm, cooperative Psychomotor activity: Normal Eye Contact: Maintains Eye Contact Mood Description: Depressed Affect description: congruent with mood Speech Volume: Normal Speech pattern: pressured Language & Vocabulary: consistent with education Thought Process: Logical, Goal Oriented Thought Content: Yes Intact Memory Description: Grossly Intact Patient Reliability: Reliable Historian Fund of knowledge: Yes average
[2017-12-11] MEDS: Divalproex (24 HR) 500 MG TABLET PO SCH (20:30)
[2017-12-11] MEDS: Mag Hydrox/Al Hydrox/Simeth 30 ML UDC PO PRN (22:48)
[2017-12-12 09:03] LABS: Basophils # 0.1 K/mcL (0.0-0.2); Basophils % 0.8 %; Eosinophils # 0.3 K/mcL (0.0-0.6); Hematocrit 40.7 % (35.3-44.9); Immature Granulocytes % 0.2 % (0-4); Lymphocytes % 41.9 %; Mean Corpuscular HGB Conc 31.9 g/dL (31.6-35.5); Mean Corpuscular Volume 97.1 fL (83.0-100.0); Mean Platelet Volume 10.5 fL (9.4-12.4); Monocytes # 0.5 K/mcL (0.0-1.3); Monocytes % 5.6 %; Neutrophils # 4.6 K/mcL (1.6-8.9); Platelet Count 414 K/mcL (140-400); Red Blood Count 4.19 M/mcL (3.82-4.97); Red Cell Distribution Width 13.5 % (11.5-14.5); Segmented Neutrophils % 48.5 %
[2017-12-12] MEDS: Mag Hydrox/Al Hydrox/Simeth 30 ML UDC PO PRN (10:25)
--- NOTE | 2017-12-12 11:05 | Psychiatry Progress Note ---
Date of Encounter: 12/12/17 Time of Encounter: 11:30 Subjective Interval history: Patient seen and discussed on rounds by a multidisciplinary treatment team. There were no reported behavioral issues or incident overnight. Patent was observed to be talkative and euphoric on presentation. She reported compliance with her medications and denied any side effects. She endorsed moderate improvement in racing thoughts and depressed mood. She is logical and goal directed. Patient reportedly has been interactive with other residents. She denied problems with sleep or appetite. On review of symptoms, she denied other mood/psychotic symptoms. Patient remain a risk due to limited judgment and impulse control and will benefit from additional hospitalization to optimize stabilization. Review of Systems Constitutional: Denies: fever, chills, weakness, weight change Eyes: Denies: eye pain, vision change Ears, Nose, Throat: Denies: ear pain, throat pain, dental pain, hearing loss, congestion Cardiovascular: Denies: chest pain, palpitations, dyspnea on exertion Respiratory: Denies: cough, dyspnea, wheezes Gastrointestinal: Denies: abdominal pain, nausea, vomiting, diarrhea, constipation Musculoskeletal: Denies: joint swelling, joint pain Neurological: Denies: headache, weakness, numbness, memory loss Psychiatric: Reports: depression, irritability, mood swings, other Results - Vital Signs Vital Signs: Temp Pulse Resp BP Pulse Ox 97.4 F L 81 18 131/88 98 12/12/17 09:00 12/12/17 09:00 12/12/17 09:00 12/12/17 09:00 12/08/17 08:18 - Labs Labs: Laboratory Results - last 24 hr 12/12/17 07:47 WBC 9.5 RBC 4.19 Hgb 13.0 Hct 40.7 MCV 97.1 MCH 31.0 MCHC 31.9 RDW 13.5 Plt Count 414 H MPV 10.5 Immature Gran % 0.2 Seg Neutrophils % 48.5 Lymphocytes % 41.9 Monocytes % 5.6 Eosinophils % 3.0 Basophils % 0.8 Neutrophils # 4.6 Lymphocytes # 4.0 Monocytes # 0.5 Eosinophils # 0.3 Basophils # 0.1 Assessment and Plan (1) Bipolar disorder, current episode mixed, severe, without psychotic features Current visit: Yes Status: Acute Risks, benefits, side effects, alternatives discussed w/pt: Yes Patient agreeable to treatment: Yes Consult Discharge Plan - Plan Referrals: [facility] [Outside] - 12/16/17 10:30 am (The above appointment is with Chloe Xiao, counselor at [facility]. Your first appointment will be very thorough and the total appointment time will take between two and three hours. You will be completing paperwork, meeting with a counselor and a nurse, and developing a treatment plan. You will receive follow- up appointments for on-going services , which could include community support, mental health and substance abuse counseling, groups/partial hospitalization programming, medication assisted treatment, and psychiatric medication management. Please bring the following with you to your first visit to the clinic: 1) proof of household income (two consecutive pay stubs, social security award letter, bank statement, statement letter from [facility], child support statement, IRS 1040 or W2 form, or a statement from the person who financially supports you stating they help provide for your basic needs), 2) proof of residency (drivers license, a piece of mail showing your address, a statement from person you live with verifying you live at their address), 3) your social security card, 4) photo ID, and 5) your insurance card (if you have commercial insurance you must call to obtain a prior authorization number before you arrive to your first appointment). If you do not bring these items, you will not be seen. ) Annamarie Vargas [Advanced Practice Nurse] - (The above appointment is with Annamarie Vargas CNP, at Primary Care within [facility]. This appointment is to establish you with a primary care provider. Your needs for medication and/or Vivitrol will be assessed and treated as indicated as well. Please arrive 15 minutes early to complete paperwork. Please bring your insurance card, photo ID and list of current medications to your first appointment. The above appointment(s) reflects first availability. You may contact the office regularly to check for cancellations that may allow you to be seen sooner.) Psychiatry Exam - Constitutional Vitals: Temp Pulse Resp BP Pulse Ox 97.4 F L 81 18 131/88 98 12/12/17 09:00 12/12/17 09:00 12/12/17 09:00 12/12/17 09:00 12/08/17 08:18 General appearance: age & developmentally appropriate - Musculoskeletal Gait: normal Strength & Tone: normal for patient - Psychiatric Patient Orientation: Yes Person Level of alertness: Alert Behavior: cooperative, talkative Psychomotor activity: Normal Eye Contact: Maintains Eye Contact Mood Description: Elevated Affect description: congruent with mood Speech Volume: Normal Speech pattern: normal rate Language & Vocabulary: consistent with education Thought Process: Intact, Logical Thought Content: Yes Intact Perceptual Disturbances: No Auditory hallucinations, No Visual hallucinations Attention Span Ability: Capable of Focused Attention Memory Description: Grossly Intact Patient Reliability: Reliable Historian Fund of knowledge: Yes abstraction ability, Yes aware of current events Intelligence Estimate: Average Judgment: Limited Insight: Partial
[2017-12-12] MEDS: Divalproex (24 HR) 500 MG TABLET PO SCH (20:29)
--- NOTE | 2017-12-13 11:10 | Psychiatry Progress Note ---
Date of Encounter: 12/13/17 Time of Encounter: 10:35 Subjective Interval history: PATIENT SEEN TODAY , She IS 37 YEAR OLD SINGLE WHITE FEMALE , with dx of Bipolar and intermittent explosive disorder. Chart reviewed , case d/w treatment team, remains intrusive and elevated. At present cooperative , decreased latency of speech , fast and rapid, teary eyes as her BF texted her mother stating he is not going to be with her and broke up with her and it is hurting her but she feels relieved. she is more worried about her court date , she has been still having racing thoughts, circumstantial thought process and labile mood, she denies suicidal thoughts , but remains impulsive and needs continuation of closer monitoring for safety and will increase seroquel to 150 mg as not sleeping and pandey , continue stabilization. will get Hga1c and depakote level. Review of Systems Psychiatric: Reports: depression, irritability, mood swings, other Results - Vital Signs Vital Signs: Temp Pulse Resp BP Pulse Ox 97 F L 91 16 139/96 98 12/13/17 09:00 12/13/17 09:00 12/13/17 09:00 12/13/17 09:00 12/08/17 08:18 Assessment and Plan (1) Bipolar disorder, current episode mixed, severe, without psychotic features Current visit: Yes Status: Acute Plan: Continue hospitalization, Close observation, Suicide Precautions per unit protocol, Encourage participation in unit milieu, Group Therapy, Monitor sleep, Monitor appetite, Family/Supportive other meeting Additional Plan: kalpesh increase seroquel 150 mg and get depakote level. Risks, benefits, side effects, alternatives discussed w/pt: Yes Patient agreeable to treatment: Yes (2) Intermittent explosive disorder Current visit: Yes Status: Acute Plan: Continue hospitalization, Close observation, Suicide Precautions per unit protocol, Group Therapy, Monitor sleep, Family/Supportive other meeting Risks , benefits, side effects, alternatives discussed w/pt: Yes Patient agreeable to treatment: Yes (3) Cocaine abuse Current visit: Yes Status: Chronic Plan: Continue hospitalization, Close observation, Group Therapy, Monitor sleep , Family/Supportive other meeting Additional Plan: on and off for last 10 years , has declined rehab at present. Risks, benefits, side effects, alternatives discussed w/pt: Yes Patient agreeable to treatment: Yes Consult Discharge Plan - Plan Referrals: [facility] [Outside] - 12/16/17 10:30 am (The above appointment is with Chloe Xiao, counselor at [facility]. Your first appointment will be very thorough and the total appointment time will take between two and three hours. You will be completing paperwork, meeting with a counselor and a nurse, and developing a treatment plan. You will receive follow- up appointments for on-going services , which could include community support, mental health and substance abuse counseling, groups/partial hospitalization programming, medication assisted treatment, and psychiatric medication management. Please bring the following with you to your first visit to the clinic: 1) proof of household income (two consecutive pay stubs, social security award letter, bank statement, statement letter from [facility], child support statement, IRS 1040 or W2 form, or a statement from the person who financially supports you stating they help provide for your basic needs), 2) proof of residency (drivers license, a piece of mail showing your address, a statement from person you live with verifying you live at their address), 3) your social security card, 4) photo ID, and 5) your insurance card (if you have commercial insurance you must call to obtain a prior authorization number before you arrive to your first appointment). If you do not bring these items, you will not be seen. ) Annamarie Vargas [Advanced Practice Nurse] - (The above appointment is with Annamarie Vargas CNP, at Primary [facility] within [facility]. This appointment is to establish you with a primary care provider. Your needs for medication and/or Vivitrol will be assessed and treated as indicated as well. Please arrive 15 minutes early to complete paperwork. Please bring your insurance card, photo ID and list of current medications to your first appointment. The above appointment(s) reflects first availability. You may contact the office regularly to check for cancellations that may allow you to be seen sooner.) Psychiatry Exam - Constitutional Vitals: Temp Pulse Resp BP Pulse Ox 97 F L 91 16 139/96 98 12/13/17 09:00 12/13/17 09:00 12/13/17 09:00 12/13/17 09:00 12/08/17 08:18 General appearance: age & developmentally appropriate, unkempt - Musculoskeletal Gait: normal Station: other Strength & Tone: normal for patient - Psychiatric Patient Orientation: Yes Person, Yes Time, Yes Place, Yes Circumstance Level of alertness: Alert Behavior: cooperative, distractible, impulsive, talkative Psychomotor activity: Increased Eye Contact: Maintains Eye Contact Mood Description: Labile Affect description: labile Speech Volume: Normal Speech pattern: excessive Language & Vocabulary: consistent with education Thought Process: Circumstantial, Racing Thought Content: Yes Guilt Attention Span Ability: Unable to Sustain Attention Memory Description: Grossly Intact Patient Reliability: Reliable Historian Fund of knowledge: Yes average Intelligence Estimate: Average Judgment: Poor Insight: Partial
[2017-12-13 11:43] LABS: Basophils # 0.1 K/mcL (0.0-0.2); Basophils % 0.6 %; Eosinophils # 0.1 K/mcL (0.0-0.6); Eosinophils % 1.5 %; Hematocrit 43.1 % (35.3-44.9); Hemoglobin 13.6 g/dL (11.5-15.4); Immature Granulocytes % 0.5 % (0-4); Lymphocytes % 23.6 %; Mean Corpuscular HGB Conc 31.6 g/dL (31.6-35.5); Mean Corpuscular Hemoglobin 30.6 pg (28.0-33.3); Mean Corpuscular Volume 97.1 fL (83.0-100.0); Mean Platelet Volume 10.5 fL (9.4-12.4); Monocytes # 0.6 K/mcL (0.0-1.3); Monocytes % 6.8 %; Neutrophils # 5.7 K/mcL (1.6-8.9); Platelet Count 410 K/mcL (140-400); Red Blood Count 4.44 M/mcL (3.82-4.97); Red Cell Distribution Width 13.4 % (11.5-14.5)
[2017-12-13 12:10] LABS: Estimated Average Glucose 108 mg/dl; Hemoglobin A1C 5.4 %
[2017-12-13] MEDS: Divalproex (24 HR) 500 MG TABLET PO SCH (20:45)
--- NOTE | 2017-12-14 13:30 | Psychiatry Progress Note ---
Date of Encounter: 12/14/17 Time of Encounter: 13:10 Subjective Interval history: Patient seen today , case d/w treatment team , in session is tearful ,crying , states my Bf WILL NOT SUPPORT ME, I had time sleeping last night and i have been sad and down denies suicidal thoughts , upset and hurt , has impulse control disorder need to observe her clsely. depakote level was 73 and hga1c wnl, platelet still high but getting better. will start remeron 7.5 mg hs. denies side effects at present. Review of Systems Psychiatric: Reports: depression, irritability, mood swings, other Results - Vital Signs Vital Signs: Temp Pulse Resp BP Pulse Ox 97.6 F 76 16 115/88 98 12/14/17 08:17 12/14/17 08:17 12/14/17 08:17 12/14/17 08:17 12/08/17 08:18 - Labs Labs: Laboratory Results - last 24 hr 12/13/17 11:18 Valproic Acid 73 Assessment and Plan (1) Bipolar disorder, current episode mixed, severe, without psychotic features Current visit: Yes Status: Acute Risks, benefits, side effects, alternatives discussed w/pt: Yes Patient agreeable to treatment: Yes (2) Intermittent explosive disorder Current visit: Yes Status: Acute Risks, benefits, side effects, alternatives discussed w/pt: Yes Patient agreeable to treatment: Yes (3) Cocaine abuse Current visit: Yes Status: Chronic Risks, benefits, side effects, alternatives discussed w/pt: Yes Patient agreeable to treatment: Yes Consult Discharge Plan - Plan Referrals: [facility] [Outside] - 12/16/17 10:30 am (The above appointment is with Chloe Xiao, counselor at [facility]. Your first appointment will be very thorough and the total appointment time will take between two and three hours. You will be completing paperwork, meeting with a counselor and a nurse, and developing a treatment plan. You will receive follow- up appointments for on-going services , which could include community support, mental health and substance abuse counseling, groups/partial hospitalization programming, medication assisted treatment, and psychiatric medication management. Please bring the following with you to your first visit to the clinic: 1) proof of household income (two consecutive pay stubs, social security award letter, bank statement, statement letter from [facility], child support statement, IRS 1040 or W2 form, or a statement from the person who financially supports you stating they help provide for your basic needs), 2) proof of residency (drivers license, a piece of mail showing your address, a statement from person you live with verifying you live at their address), 3) your social security card, 4) photo ID, and 5) your insurance card (if you have commercial insurance you must call to obtain a prior authorization number before you arrive to your first appointment). If you do not bring these items, you will not be seen. ) Annamarie Vargas [Advanced Practice Nurse] - 12/22/17 3:00 pm (The above appointment is with Annamarie Vargas CNP, at Primary [facility] within [facility]. This appointment is to establish you with a primary care provider. Your needs for medication and/or Vivitrol will be assessed and treated as indicated as well. Please arrive 15 minutes early to complete paperwork. Please bring your insurance card, photo ID and list of current medications to your first appointment. The above appointment(s) reflects first availability. You may contact the office regularly to check for cancellations that may allow you to be seen sooner.) Psychiatry Exam - Constitutional Vitals: Temp Pulse Resp BP Pulse Ox 97.6 F 76 16 115/88 98 12/14/17 08:17 12/14/17 08:17 12/14/17 08:17 12/14/17 08:17 12/08/17 08:18 General appearance: age & developmentally appropriate - Musculoskeletal Gait: normal Station: other Strength & Tone: normal for patient - Psychiatric Patient Orientation: Yes Person, Yes Time, Yes Place Level of alertness: Alert Behavior: cooperative, restless Psychomotor activity: Normal Eye Contact: Maintains Eye Contact Mood Description: Depressed, Anxious Affect description: congruent with mood, tearful Speech Volume: Normal Speech pattern: coherent, excessive Language & Vocabulary: consistent with education Thought Process: Circumstantial Thought Content: Yes Intact, Yes Guilt Attention Span Ability: Unable to Sustain Attention Memory Description: Grossly Intact Patient Reliability: Reliable Historian Fund of knowledge: Yes average Intelligence Estimate: Average Judgment: Limited Insight: Partial
[2017-12-14] MEDS: Divalproex (24 HR) 500 MG TABLET PO SCH (20:11)
[2017-12-14] MEDS ORDERED: Mirtazapine 15 MG TABLET PO SCH (21:00)
[2017-12-15 09:03] VITALS: BP 143/84
--- NOTE | 2017-12-15 10:15 | Discharge Summary ---
Date of Encounter: 12/15/17 Time of Encounter: 10:00 Diagnosis - Discharge Diagnosis (1) Bipolar disorder, current episode mixed, severe, without psychotic features Status: Acute Comments: patient is stable and at baseline, moods stable,sleep is better , gained insight and compliance discussed with her. (2) Intermittent explosive disorder Status: Acute Comments: patient responded to treatment , at present not in danger to self/other (3) Cocaine abuse Status: Chronic Comments: educated about street drugs and medications, she will go to out patient groups and counselling. Medications - Discharge Medications Prescriptions: Divalproex (24 HR) [Depakote ER (24 HR)] 1,500 mg PO HS #30 tab.er.24h Mirtazapine [Remeron] 7.5 mg PO HS #10 tablet Quetiapine Fumarate [Seroquel] 100 mg PO HS #10 tablet Quetiapine Fumarate [Seroquel] 50 mg PO HS #10 tablet Divalproex (24 HR) [Depakote ER (24 HR)] 1,500 mg PO HS #30 tab.er.24h 12/15/17 [Rx] Mirtazapine [Remeron] 7.5 mg PO HS #10 tablet 12/15/17 [Rx] Quetiapine Fumarate [Seroquel] 50 mg PO HS #10 tablet 12/15/17 [Rx] Quetiapine Fumarate [Seroquel] 100 mg PO HS #10 tablet 12/15/17 [Rx] 3 Allergy/AdvReac Type Severity Reaction Status Date / Time codeine Allergy Rash Verified 11/12/15 20:48 Results Procedures and tests throughout hospitalization: Completed Lab Orders Category Date Time Status CBC [Complete Blood Count] [HEME] Routine Lab 12/13/17 11:19 Completed CBC [Complete Blood Count] [HEME] Timed Lab 12/12/17 07:47 Completed Hgb A1C Routine Lab 12/13/17 11:18 Completed Valproate Routine Lab 12/13/17 11:18 Completed Provider Date of admission: 12/08/17 12:49 Primary care physician: PCP NONE Psychiatry Exam - Constitutional Vitals: Temp Pulse Resp BP Pulse Ox 97.6 F 77 16 143/84 98 12/15/17 09:00 12/15/17 09:00 12/15/17 09:00 12/15/17 09:00 12/08/17 08:18 General appearance: age & developmentally appropriate, average - Musculoskeletal Gait: normal Station: other Strength & Tone: normal for patient - Psychiatric Patient Orientation: Yes Person, Yes Time, Yes Place Level of alertness: Alert Behavior: calm, cooperative Psychomotor activity: Normal Eye Contact: Maintains Eye Contact Mood Description: Euthymic/stable, Anxious Affect description: congruent with mood Speech Volume: Normal Speech pattern: coherent Language & Vocabulary: consistent with education Thought Process: Intact Thought Content: Yes Intact Attention Span Ability: Capable of Focused Attention Memory Description: Grossly Intact Patient Reliability: Reliable Historian Fund of knowledge: Yes average Intelligence Estimate: Average Judgment: Good Insight: Full Hospital Course Hospital course: Ms. Shipman is a 37 year old female was admitted from ED, she was bought in to get help, she had 2 charges of domestic violence, she spent 2 days in prison before coming to hospital. She has h/o bipolar affective disorder. she had been using crack and has been impulsive, not sleeping well, excessive shopping, racing thoughts , distracted and stressed and worried, she has been non compliant with medications and follow up. dURING HER COURSE OF HOSPITALIZATION SHE WAs compliant with treatment milieu and showed im[rovement in her moods, anger, irritability, racing thoughts, depression , sleep and appetite. she gained insight in her illness , importance of compliance and learned coping skills and educated to not use street drugs. She has support from her family and has plans to look for job and stay with family. her labs were improved, her depakote level was in therapeutic range. Time spent discussing smoking cessation with patient: 3 to 10 minutes Does patient wish to continue nicotine replacement upon disc: No (she was using vapor and has given up since here and no patches ) - Time Spent with Patient Total time spent providing and/or coordinating discharge services: Less than 30 minutes Assessment and Plan - Patient/Caregiver Discharge Instructions Activity: resume usual activities as tolerated Diet: regular diet - Follow up Plan Follow up with: [facility] [Outside] - 12/16/17 10:30 am (The above appointment is with Chloe Xiao, counselor at [facility]. Your first appointment will be very thorough and the total appointment time will take between two and three hours. You will be completing paperwork, meeting with a counselor and a nurse, and developing a treatment plan. You will receive follow- up appointments for on-going services , which could include community support, mental health and substance abuse counseling, groups/partial hospitalization programming, medication assisted treatment, and psychiatric medication management. Please bring the following with you to your first visit to the clinic: 1) proof of household income (two consecutive pay stubs, social security award letter, bank statement, statement letter from [facility], child support statement, IRS 1040 or W2 form, or a statement from the person who financially supports you stating they help provide for your basic needs), 2) proof of residency (drivers license, a piece of mail showing your address, a statement from person you live with verifying you live at their address), 3) your social security card, 4) photo ID, and 5) your insurance card (if you have commercial insurance you must call to obtain a prior authorization number before you arrive to your first appointment). If you do not bring these items, you will not be seen. ) Annamarie Vargas [Advanced Practice Nurse] - 12/22/17 3:00 pm (The above appointment is with Annamarie Vargas CNP, at Primary Care within [facility]. This appointment is to establish you with a primary care provider. Your needs for medication and/or Vivitrol will be assessed and treated as indicated as well. Please arrive 15 minutes early to complete paperwork. Please bring your insurance card, photo ID and list of current medications to your first appointment. The above appointment(s) reflects first availability. You may contact the office regularly to check for cancellations that may allow you to be seen sooner.) Overall status at discharge: Stable Disposition: Home, Self-Care Quality - Multiple Antipsychotics Patient discharged on 2 or more antipsychotic medications: No Procedures - Procedures Procedures: Medication Management, Crisis Stabilization, Supportive Therapy, Group Therapy, Psychoeducational Therapy
== END 2017-12-15 15:45 | disposition home or self-care (01) | DRG 753 ==
LOC: EMEROO 20:59 → SUATTDRO 12-08 12:49 → 1ANU 12-08 12:49
PROVIDERS: ADMIT Psychiatry & Neurology Forensic Psychiatry; ATTEND Psychiatry & Neurology Psychiatry